=== PATIENT | female | born 1965 | race Caucasian/White ===

== ENCOUNTER 2017-11-26 11:01 | Emergency (ER) | payer BC ==
[~2017-11-26] VITALS: Ht 160 cm; Wt 72.7 kg
[~2017-11-26 11:01] MED LIST: DOXYCYCLINE; Roxicet,Percocet 5/3 PO
[2017-11-26 11:26] LABS: HEMATOCRIT 42.4 % (36.0-46.0); HEMOGLOBIN 14.4 G/DL (11.9-15.5); MCH 30.4 PG (29.0-34.0); MCV 89.6 FL (83-99); RBC DIS.WIDTH-CV 12.7 % (11.8-14.6); RBC DIS.WIDTH-SD 42.1 % (39-53); RED BLOOD COUNT 4.73 M/uL (3.80-5.20); WHITE BLOOD COUNT 6.4 K/uL (4.1-10.2)
[2017-11-26 11:37] LABS: CHLORIDE 108 mEq/L (99-109); POTASSIUM 4.9 mEq/L (3.7-5.4); SODIUM 142 mEq/L (136-147)
[2017-11-26 11:39] LABS: GLUCOSE 97 mg/dL (70-99); TOTAL PROTEIN 7.1 g/dL (6.4-8.3)
[2017-11-26 11:41] LABS: TOTAL BILIRUBIN 0.1 mg/dL (0.0-1.0)
[2017-11-26 11:43] LABS: ALKALINE PHOSPHATASE 77 IU/L (3-129); CREATININE 0.7 mg/dL (0.6-1.3); GFR ESTIMATE (CALCULATED) > 59 mL/min/
[2017-11-26 11:44] LABS: AST (GOT) 23 IU/L (2-34); UREA NITROGEN (BUN) 19 mg/dL (9-23)
[2017-11-26 11:46] LABS: ALT (GPT) 25 IU/L (3-49)
[2017-11-26 11:51] LABS: QUANTITATIVE HCG < 4.0 MIU/ML
[2017-11-26 12:21] LABS: PLAT.SUFFICIENCY ADEQUATE; PLATELET COUNT 252 K/uL (156-360)
[2017-11-26 15:17] LABS: APPEARANCE CLEAR ((CLEAR)); BILIRUBIN NEGATIVE; BLOOD NEGATIVE; COLOR YELLOW ((YELLOW)); GLUCOSE (STRIP) NEGATIVE; KETONES 20; LEUKOCYTES NEGATIVE; NITRITE NEGATIVE; PROTEIN (STRIP) NEGATIVE; SPECIFIC GRAVITY 1.035 (1.000-1.030); UCUL ADDED? NO; UROBILINOGEN 0.2 MG/DL (0.2-1.0)
[2017-11-26] MEDS ORDERED: BENTYL20 MG PO (15:57)
[2017-11-26] MEDS ORDERED: ZOFRAN ODT4 MG PO (15:57)
[2017-11-26 16:11] VITALS: BP 134/85
== END 2017-11-26 16:12 | disposition home or self-care (01) ==
LOC: EME 11:01
DX: R10.31 Right lower quadrant pain (principal); R11.0 Nausea; Z98.890 Other specified postprocedural states; N83.202 Unspecified ovarian cyst, left side; R93.5 Abnormal findings on diagnostic imaging of other abdominal regions, including retroperitoneum; M32.9 Systemic lupus erythematosus, unspecified; Z79.891 Long term (current) use of opiate analgesic; Z90.710 Acquired absence of both cervix and uterus; Z88.5 Allergy status to narcotic agent
CPT/HCPCS: 74177; 80053; 81003; 84702; 85027; 99281; 99285; J0595; J2405; J7030